=== PATIENT | male | born 1955 | race Caucasian/White ===

== ENCOUNTER 2016-07-23 08:27 | Outpatient (CLI) ==
[2016-07-23 12:54] LABS: BASOPHILS # (AUTO) 0.1 K/uL (0-0.2); EOSINOPHILS # (AUTO) 0.2 K/ul (0.0-0.7); EOSINOPHILS % (AUTO) 4.5 % (0.0-7.0); HEMATOCRIT 48.4 % (42.0-52.0); HEMOGLOBIN 16.1 g/dl (14.0-18.0); IMMATURE GRANULOCYTE % (AUTO) 0.2 % (0.0-5.0); LYMPHOCYTES % (AUTO) 21.2 (10.0-50.0); MEAN CORPUSCULAR HEMOGLOBIN 28.9 pg (27.0-31.0); MEAN CORPUSCULAR HGB CONC 33.3 (31.8-35.4); MEAN CORPUSCULAR VOLUME 86.9 fl (80.0-94.0); MONOCYTES # (AUTO) 0.5 K/uL (0.4-2.0); MONOCYTES % (AUTO) 10.6 (0-10); NEUTROPHILS # (AUTO) 3.1 K/ul (2.0-6.9); NEUTROPHILS % (AUTO) 62.5; PLATELET COUNT 136 10^3/uL (140-440); RED BLOOD COUNT 5.57 10^6/ul (4.70-6.10); WHITE BLOOD COUNT 4.91 K/ul (4.2-10.2)
[2016-07-23 12:56] LABS: BILIRUBIN,URINE Negative (NEGATIVE); KETONES,URINE Negative (NEGATIVE); LEUKOCYTE ESTERASE ,URINE Negative (NEGATIVE); NITRITE,URINE Negative (NEGATIVE); PH,URINE 5.5 (5-9); PROTEIN,URINE Negative (NEGATIVE); URINE, BLOOD Negative (NEGATIVE)
[2016-07-23 12:57] LABS: ADD URINE MICROSCOPIC NO
[2016-07-23 14:35] LABS: ALBUMIN/GLOBULIN RATIO 1.29; ANION GAP 16.3; BILIRUBIN,TOTAL 0.75 mg/dL (0.00-1.20); BUN/CREATININE RATIO 17.04; CALCIUM 9.5 mg/dL (8.2-10.2); CHOL/HDL RATIO 3.9 (4.5-6.4); CREATININE 0.88 mg/dL (0.60-1.10); POTASSIUM 4.3 mmol/L (3.5-5.1); TOTAL PROTEIN 7.1 g/dL (6.4-8.2)
== END 2016-07-23 08:28 | disposition home or self-care (01) ==
LOC: LAB 08:27
PROVIDERS: ATTEND General Practice
DX: R73.03 Prediabetes (principal); I10 Essential (primary) hypertension; E78.5 Hyperlipidemia, unspecified; D36.9 Benign neoplasm, unspecified site
CPT/HCPCS: 36415; 80053; 80061; 81001; 83036; 85025

== ENCOUNTER 2016-08-10 07:11 | Outpatient (CLI) ==
--- NOTE | 2016-08-10 08:43 | US ---
EXAM: Renal ultrasound HISTORY: Familial history of renal cell carcinoma COMPARISON: Renal ultrasound 03/22/[address] abdomen pelvis 08/31/2013 TECHNIQUE: Sonographic evaluation of the kidneys was performed with limited Doppler evaluation. FINDINGS: The right kidney measures 11.4 x 5.2 x 5.0 cm with renal cortical thickness of 1.4 cm. Th e kidney is lobular. There is normal echogenicity and color Doppler flow. No stone or hydronephrosi s is identified. The left kidney measures 9.9 x 5.5 x 4.7 cm with renal cortical thickness of 1.2 cm. There is krunal l echogenicity and color Doppler flow. No stone or hydronephrosis is identified. There is a 1.4 x 1 .9 x 1.7 cm predominantly hypoechoic solid appearing nodule in the superior mid kidney Limited evaluation of the urinary bladder is unremarkable. IMPRESSION: Soft tissue nodule in the mid superior left kidney as measured above. CT renal mass protocol is rec ommended. Unexpected findings of soft tissue left renal nodule.
== END 2016-08-10 07:12 | disposition home or self-care (01) ==
LOC: RAD 07:11
PROVIDERS: ATTEND General Practice
DX: R93.429 Abnormal radiologic findings on diagnostic imaging of unspecified kidney (principal); Z80.51 Family history of malignant neoplasm of kidney
CPT/HCPCS: 76770

== ENCOUNTER 2016-08-13 10:46 | Outpatient (CLI) ==
--- NOTE | 2016-08-13 13:59 | CT ---
EXAM: CT abdomen pelvis with and without contrast HISTORY: other specified disorders of kidney and ureter, renal ultrasound describes soft tissue nod ule left kidney COMPARISON: Renal ultrasound 08/10/2016 TECHNIQUE: CT abdomen pelvis performed with and without intravenous contrast. Post contrast images obtained in the arterial, venous, and X right bases. Coronal and sagittal reformatted images obtai umang FINDINGS: The lung bases clear. No free air. No acute abnormalities of the bones. Degenerative c hange in the spine. In heart normal in size. Liver appears normal. Gallbladder appears normal. P ancreas appears normal. Spleen appears normal. Adrenals appear normal. Aorta normal in caliber. Bladder appears normal. Prostate normal in size. No lymphadenopathy or ascites. Tiny fat-containi ng umbilical hernia. Prostate mildly enlarged. Stomach appears normal. No dilated loops small bow el. Appendix appears normal. There is colonic diverticulosis. No inflammatory stranding in the ab domen pelvis. No hydronephrosis or nephrolithiasis. There is an area of renal cortical scarring le ft inferior kidney. No solid renal mass. Excretion is symmetric. Distal left ureter is duplicated. Bladder unremarkable. IMPRESSION: 1. No renal mass. 2. Cortical scarring left inferior kidney, likely due to remote insult. 3. Colonic diverticulosis. 4. Mildly enlarged prostate.
== END 2016-08-13 10:47 | disposition home or self-care (01) ==
LOC: RAD 10:46
PROVIDERS: ATTEND Nurse Practitioner Family
DX: N28.89 Other specified disorders of kidney and ureter (principal)

== ENCOUNTER 2016-12-03 11:10 | Outpatient (CLI) ==
[2016-12-03 12:47] LABS: BASOPHILS % (AUTO) 0.8 % (0.0-3.0); EOSINOPHILS # (AUTO) 0.2 K/ul (0.0-0.7); EOSINOPHILS % (AUTO) 5.4 % (0.0-7.0); HEMATOCRIT 47.5 % (42.0-52.0); HEMOGLOBIN 15.7 g/dl (14.0-18.0); IMMATURE GRANULOCYTE % (AUTO) 0.3 % (0.0-5.0); LYMPHOCYTES # (AUTO) 0.9 K/uL (0.60-3.4); MEAN CORPUSCULAR HEMOGLOBIN 28.7 pg (27.0-31.0); MEAN CORPUSCULAR HGB CONC 33.1 (31.8-35.4); MEAN CORPUSCULAR VOLUME 86.8 fl (80.0-94.0); MONOCYTES # (AUTO) 0.5 K/uL (0.4-2.0); MONOCYTES % (AUTO) 13.6 (0-10); NEUTROPHILS # (AUTO) 2.2 K/ul (2.0-6.9); NEUTROPHILS % (AUTO) 55.9; PLATELET COUNT 134 10^3/uL (140-440); RED BLOOD COUNT 5.47 10^6/ul (4.70-6.10); WHITE BLOOD COUNT 3.91 K/ul (4.2-10.2)
[2016-12-03 12:52] LABS: BILIRUBIN,URINE Negative (NEGATIVE); KETONES,URINE Negative (NEGATIVE); LEUKOCYTE ESTERASE ,URINE Negative (NEGATIVE); NITRITE,URINE Negative (NEGATIVE); PROTEIN,URINE Negative (NEGATIVE); URINE, BLOOD Negative (NEGATIVE)
[2016-12-03 12:55] LABS: ADD URINE MICROSCOPIC NO
[2016-12-03 13:03] LABS: ALBUMIN 4.2 g/dL (3.4-5.0); ALBUMIN/GLOBULIN RATIO 1.4; ANION GAP 9.2; BILIRUBIN,TOTAL 0.95 mg/dL (0.00-1.20); BUN/CREATININE RATIO 17.39; CALCIUM 9.6 mg/dL (8.2-10.2); CHOL/HDL RATIO 3.8 (4.5-6.4); CREATININE 0.92 mg/dL (0.60-1.10); POTASSIUM 4.2 mmol/L (3.5-5.1); TOTAL PROTEIN 7.2 g/dL (6.4-8.2)
== END 2016-12-03 11:11 | disposition home or self-care (01) ==
LOC: LAB 11:10
PROVIDERS: ATTEND General Practice
DX: E78.5 Hyperlipidemia, unspecified (principal); I10 Essential (primary) hypertension; D36.9 Benign neoplasm, unspecified site; R93.429 Abnormal radiologic findings on diagnostic imaging of unspecified kidney; Z80.51 Family history of malignant neoplasm of kidney; R73.03 Prediabetes; Z68.26 Body mass index [BMI] 26.0-26.9, adult; Z79.899 Other long term (current) drug therapy
CPT/HCPCS: 36415; 80053; 80061; 81001; 85025

== ENCOUNTER 2017-02-06 13:47 | Outpatient (CLI) ==
[2017-02-06 14:01] LABS: BASOPHILS % (AUTO) 0.7 % (0.0-3.0); EOSINOPHILS # (AUTO) 0.3 K/ul (0.0-0.7); EOSINOPHILS % (AUTO) 6.4 % (0.0-7.0); HEMATOCRIT 46.7 % (42.0-52.0); HEMOGLOBIN 15.7 g/dl (14.0-18.0); IMMATURE GRANULOCYTE % (AUTO) 0.5 % (0.0-5.0); LYMPHOCYTES # (AUTO) 0.9 K/uL (0.60-3.4); MEAN CORPUSCULAR HEMOGLOBIN 28.9 pg (27.0-31.0); MEAN CORPUSCULAR HGB CONC 33.6 (31.8-35.4); MEAN CORPUSCULAR VOLUME 85.8 fl (80.0-94.0); MONOCYTES # (AUTO) 0.5 K/uL (0.4-2.0); NEUTROPHILS # (AUTO) 2.6 K/ul (2.0-6.9); NEUTROPHILS % (AUTO) 60.4; PLATELET COUNT 111 10^3/uL (140-440); RED BLOOD COUNT 5.44 10^6/ul (4.70-6.10); WHITE BLOOD COUNT 4.24 K/ul (4.2-10.2)
== END 2017-02-06 13:48 | disposition home or self-care (01) ==
LOC: LAB 13:47
PROVIDERS: ATTEND General Practice
DX: D72.819 Decreased white blood cell count, unspecified (principal); D69.6 Thrombocytopenia, unspecified
CPT/HCPCS: 36415; 85025

== ENCOUNTER 2017-02-19 10:05 | Outpatient (CLI) ==
[2017-02-19 10:26] LABS: BASOPHILS % (AUTO) 0.7 % (0.0-3.0); EOSINOPHILS # (AUTO) 0.2 K/ul (0.0-0.7); LYMPHOCYTES % (AUTO) 23.4 (10.0-50.0); MEAN CORPUSCULAR HEMOGLOBIN 28.9 pg (27.0-31.0); MEAN CORPUSCULAR VOLUME 84.8 fl (80.0-94.0); MONOCYTES # (AUTO) 0.5 K/uL (0.4-2.0); NEUTROPHILS # (AUTO) 2.6 K/ul (2.0-6.9); NEUTROPHILS % (AUTO) 59.9; PLATELET COUNT 135 10^3/uL (140-440); RED BLOOD COUNT 5.54 10^6/ul (4.70-6.10); WHITE BLOOD COUNT 4.36 K/ul (4.2-10.2)
== END 2017-02-19 10:06 | disposition home or self-care (01) ==
LOC: LAB 10:05
PROVIDERS: ATTEND General Practice
DX: D69.6 Thrombocytopenia, unspecified (principal)
CPT/HCPCS: 36415; 85025

== ENCOUNTER 2017-07-30 10:31 | Outpatient (CLI) | END 2017-07-30 10:32 | disposition home or self-care (01) | LOC: FCC-LAB 10:31 | PROVIDERS: ATTEND General Practice | DX: E78.5 Hyperlipidemia, unspecified (principal); I10 Essential (primary) hypertension; D69.6 Thrombocytopenia, unspecified; D72.819 Decreased white blood cell count, unspecified | CPT/HCPCS: 36415; 80053; 80061; 81001; 85025 ==

== ENCOUNTER 2017-10-07 07:10 | Outpatient (CLI) ==
--- NOTE | 2017-10-07 08:33 | US ---
EXAM: Ultrasound retroperitoneal complete. HISTORY: Family history of kidney cancer. Left renal scarring. COMPARISON: 04/04/2017, 08/10/2016, 03/22/2015. CT 08/13/2016. TECHNIQUE: Multiple strickland scale and color Doppler images. FINDINGS: Right kidney measures 11.2 x 5.5 x 5.6 cm and appears normal. The left kidney measures 10 .2 x 5.7 x 5.1 cm into the chest is stable lobular cortical contour. Bilateral cortical echogenicity is normal. There is no hydronephrosis. Urinary bladder is unremarkable. Since the prior study, there has been no significant interval change. IMPRESSION: No acute sonographic abnormality of the kidneys.
== END 2017-10-07 07:11 | disposition home or self-care (01) ==
LOC: RAD 07:10
PROVIDERS: ATTEND General Practice
DX: R93.429 Abnormal radiologic findings on diagnostic imaging of unspecified kidney (principal); Z80.51 Family history of malignant neoplasm of kidney
CPT/HCPCS: 76770

== ENCOUNTER 2017-12-09 06:44 | Outpatient (CLI) | END 2017-12-09 06:45 | disposition home or self-care (01) | LOC: LAB 06:44 | PROVIDERS: ATTEND General Practice | DX: E78.5 Hyperlipidemia, unspecified (principal); I10 Essential (primary) hypertension; D72.819 Decreased white blood cell count, unspecified; D69.6 Thrombocytopenia, unspecified | CPT/HCPCS: 36415; 80053; 80061; 81001; 85025 ==

== ENCOUNTER 2018-04-15 16:00 | Outpatient (CLI) | END 2018-04-15 16:01 | disposition home or self-care (01) | LOC: RHC-LAB 16:00 | PROVIDERS: ATTEND General Practice | DX: R73.03 Prediabetes (principal); Z12.5 Encounter for screening for malignant neoplasm of prostate; I10 Essential (primary) hypertension; E78.5 Hyperlipidemia, unspecified; R93.429 Abnormal radiologic findings on diagnostic imaging of unspecified kidney; D72.819 Decreased white blood cell count, unspecified; D69.6 Thrombocytopenia, unspecified; Z79.899 Other long term (current) drug therapy; Z80.51 Family history of malignant neoplasm of kidney | CPT/HCPCS: 36415; 80053; 80061; 81001; 85025 ==

== ENCOUNTER 2018-08-25 08:17 | Outpatient (CLI) | END 2018-08-25 08:18 | disposition home or self-care (01) | LOC: RHC-LAB 08:17 | PROVIDERS: ATTEND General Practice | DX: E78.5 Hyperlipidemia, unspecified (principal); I10 Essential (primary) hypertension; R73.03 Prediabetes | CPT/HCPCS: 36415; 80053; 80061; 81001; 85025 ==